=== PATIENT | female | born 1970 | race Caucasian/White ===

== ENCOUNTER 2017-01-18 13:33 | Emergency (ER) | payer OTHER ==
--- NOTE | 2017-01-18 16:08 | DIAGNOSTIC IMAGING REPORT ---
PROCEDURE: CT ABDOMEN/PELVIS W/O CONTRAST INDICATION: HEMATURIA TECHNIQUE: Axial CT images were obtained through the abdomen and pelvis without IV contrast. Coronal and sagittal reformations were created. COMPARISON: None. FINDINGS: Clear lung bases. Normal sized heart. Moderate size hiatal hernia. Punctate, left lower pole intrarenal calcification. No evidence of right intrarenal calcifications. Nondilated ureters without intraureteral calcification. No bladder calcifications. Surgically absent gallbladder. The unenhanced appearance of the liver, adrenal glands, kidneys, pancreas and spleen is normal. Nonenlarged retroperitoneal lymph nodes and bilateral pelvic sidewall lymph nodes visible. The abdominal aorta is normal in its course and caliber. There are no suspicious calcifications, bulky retroperitoneal adenopathy or masses. The stomach, upper bowel loops, and mesentery are normal. Intact anterior abdominal wall. No free fluid or inflammation. Occasional descending colon diverticulosis. The unenhanced appearance of the retroverted uterus, ovaries, urinary bladder, pelvic vessels, and pelvic bowel loops is normal. Normal appendix. No suspicious calcifications, free pelvic fluid or mass. Intact osseous structures. IMPRESSION: 1. No evidence of obstructive uropathy. 2. Punctate, nonobstructing left lower pole intrarenal calcification. No other urinary calcifications. 3. Status post cholecystectomy. 4. Occasional diverticulosis. 5. Discussed with Helene Lieberman in the emergency room. All CT scans at this facility use dose modulation, iterative reconstruction, and/or weight-based dosing when appropriate to reduce radiation dose to as low as reasonably achievable.
--- NOTE | 2017-01-18 16:43 | ED ORDER SUMMARY ---
..... Patient: JORGE CASPER OrderSheet [facility] VisitID: [id number] [address] [place] [address] 46y, F Registration Date/Time: 01/18/2017 ORDER SHEET Weight: 122.4 kg (stated) Allergies: Sulfa Antibiotics GENERAL ORDERS: UA-Culture if indicated Urgent (14:22 01/18/2017 DDean R.N. per protocol) (14:40 PWeiler ER Tech1) CT Abd/Pel wo Cont Urgent (15:07 01/18/2017 HBivens A.R.N.P.) (Ack 15:09 KHoerner) (16:06 DDean R.N.) CBC w Diff Urgent (15:07 01/18/2017 HBivens A.R.N.P.) (Ack 15:09 KHoerner) (15:50 DDean R.N.) CMP Urgent (15:07 01/18/2017 HBivens A.R.N.P.) (Ack 15:09 KHoerner) (15:50 DDean R.N.) Urine Urgent (15:08 01/18/2017 HBivens A.R.N.P.) (15:08 KHoerner) MEDICATION ORDERS: IV FLUIDS: IV NS : initial bolus 1000 mL (1000 mL/hr), then none - (NOW) (15:07 01/18/2017 HBivens A.R.N.P.) (16:26 DDean R.N.) Toradol IV 30 mg (NOW) (15:07 01/18/2017 HBivens A.R.N.P.) (Ack 15:32 DDean R.N.) (15:50 DDean R.N.) IV Saline Lock (15:01/18/2017 HBivens A.R.N.P.) (Ack 15:32 DDean R.N.) (15:50 DDean R.N.) Dilaudid IV 1 mg (HIGH ALERT MEDICATION, NOW) (16:41 01/18/2017 HBivens A.R.N.P.) (Ack 16:45 DDean R.N.) (16:52 DDean R.N.) Zofran IV 4 mg (NOW) (16:41 01/18/2017 Brian A.R.N.P.) (Ack 16:45 DDean R.N.) (16:52 DDean R.N.) ORDER SHEET NOTES: [Electronically signed by Libra Rodriguez R.N. (17:32 01/18/2017)] [Electronically signed by Helene LiebermanR.N.PPolina (21:31 01/18/2017)] [Electronically locked/signed by Libra Rodriguez R.N. (17:32 01/18/2017)]
--- NOTE | 2017-01-18 16:43 | ED CLINICAL REPORT ---
Clinical Report - Physicians/Mid Levels [facility] [address] [place] [address] 01/18/2017 13:34 Patient: JORGE CASPER Time Seen: 14:31; initial patient contact, initial documentation, patient care assumed. Arrived- By private vehicle. Historian- patient. HISTORY OF PRESENT ILLNESS Chief Complaint: BACK PAIN. Modifying factors. Not worsened by anything. Not relieved by anything. It is described as being severe and in the area of the left flank and right flank. The quality is noted to be "pain". No radiation. Onset- about 4 - 5 days ago and it is still present. It was abrupt in onset and has been constant. No bladder dysfunction, bowel dysfunction, sensory loss or motor loss. Patient denies an injury but injury to the head or neck. Similar symptoms previously: None. Recent medical care: Not recently seen/assessed. REVIEW OF SYSTEMS No fever, vaginal discharge, difficulty breathing, chest pain or abdominal pain. No vomiting or diarrhea. She has had difficulty with urination, with pain during urination, along with urgency and frequency. The patient has had urinary frequency. All systems otherwise negative, except as recorded above. PAST HISTORY See nurses notes. PROBLEMS: Dehydration. Pyelonephritis. Kidney disease. Pharyngitis. COPD - Chronic Obstructive Pulmonary Disease. Hypertension. Reflux. Sleep Apnea. Dental Pain. Abscess. Heart Disease. --13:47 Libra Rodriguez RPolinaN. ADDITIONAL SURGERIES: Cholecystectomy. . Laparoscopy. Tubal Ligation. --13:47 Libra Rodriguez R.N. SOCIAL HISTORY Heavy tobacco smoker. History of occasional drug use: marijuana. No alcohol use. No recent travel. Is a local resident. FAMILY HISTORY Negative. ADDITIONAL NOTES The nursing notes have been reviewed with agreement regarding the chief complaint, HPI, ROS, PMH and patient medications and allergies. PHYSICAL EXAM Vital Signs: 01/18/2017 13:40 BP: 145/77. HR: 98. RR: 20. O2 saturation: 100%. Temp: 98 F. Pain level now: 10. Have been reviewed as normal and appear to be correct. Appearance: Alert. No acute distress. Neck: Normal inspection. Neck nontender. Painless ROM. CVS: Heart sounds normal. Pulses normal. Respiratory: No respiratory distress. Breath sounds abnormal. Inspiratory mild bilateral wheezes in the bases. Abdomen: No visible injury. Soft and nontender. Bowel sounds normal. No organomegaly. No mass. Moderately obese. Back: Normal inspection. No tenderness. Painless ROM. Skin: Skin warm and dry. Normal skin color. No rash. Normal skin turgor. Extremities: Extremities exhibit normal ROM. Extremities nontender. Neuro: Oriented X 3. Mood/affect normal. No motor deficit. No sensory deficit. LABS, X-RAYS, AND EKG CT Abdomen: . IMPRESSION: 1. No evidence of obstructive uropathy. 2. Punctate, nonobstructing left lower pole intrarenal calcification. No other urinary calcifications. 3. Status post cholecystectomy. 4. Occasional diverticulosis. 5. Discussed with Helene Lieberman in the emergency room. All CT scans at this facility use dose modulation, iterative reconstruction, and/or weight-based dosing when appropriate to reduce radiation dose to as low as reasonably achievable. Electronically Final signed by:Gin Phelps MD 01/18/2017 4:08:33 PM. The study was interpreted by the radiologist and discussed with the radiologist. Interpretation time: 16:08. Laboratory Tests: UA-Culture if indicated: (KIMO: 01/18/2017 13:40) ( MsgRcvd 01/18/2017 14:59) Final results Test Result Flag Units (Reference) URINE COLOR YELLOW URINE APPEARANCE SL CLOUDY URINE GLUCOSE NEGATIVE (NEGATIVE) URINE BILIRUBIN NEGATIVE (NEGATIVE) URINE KETONE NEGATIVE (NEGATIVE) URINE SPECIFIC GRAVITY <= 1.005 L (1.010-1.030) URINE PH 6.0 (5.0-8.0) URINE PROTEIN NEGATIVE (NEGATIVE) URINE UROBILINOGEN 0.2 EU/dL (0.2-1.0) URINE NITRITE NEGATIVE (NEGATIVE) URINE BLOOD 2+ (NEGATIVE) URINE LEUK ESTERASE NEGATIVE (NEGATIVE) URINE RBC 3-5 rbc/hpf (0-1) URINE WBC 1-3 wbc/hpf (0-1) URINE EPITHELIAL CELLS 10-15 EPI/hpf (0-5) URINE BACTERIA NONE SEEN (NONE SEEN) URINE COMMENT CULT NOT INDICATED URINE CULTURES ARE SET-UP BASED ON THE FOLLOWING CRITERIA:POSITIVE NITRITEPOSITIVE LEUKOCYTE ESTERASEGREATER THAN 10 WHITE BLOOD CELLSMODERATE (2+) OR GREATER BACTERIA Urine: (KIMO: 01/18/2017 13:40) ( MsgRcvd 01/18/2017 15:25) Final results Test Result Flag Units (Reference) URINE NEGATIVE CBC w Diff: (KIMO: 01/18/2017 15:40) ( MsgRcvd 01/18/2017 16:00) Final results Test Result Flag Units (Reference) WHITE BLOOD COUNT 9.3 K/uL (4.5-11.5) RED BLOOD COUNT 4.57 M/uL (4.00-5.20) HEMOGLOBIN 12.4 gm/dL (12.0-16.0) HEMATOCRIT 37.5 % (36.0-46.0) MEAN CELL VOLUME 82 fL (80-100) MEAN CORPUSCULAR HGB 27 pg (26-34) MEAN CORPUSCULAR HGB CONC 33 g/dL (31-37) RED CELL DISTRIBUTION WIDTH 16.1 H % (11.6-14.8) PLATELET COUNT 282 K/uL (150-400) NEUTROPHIL % 83.2 H % (50-75) LYMPH % 11.5 L % (25-40) MONO % 4.0 % (3-14) EOSINOPHIL % 0.9 % (0-4) BASOPHIL % 0.4 % (0-2) CMP: (KIMO: 01/18/2017 15:40) ( MsgRcvd 01/18/2017 16:08) Final results Test Result Flag Units (Reference) GLUCOSE 87 mg/dL (70-110) BUN 12 mg/dL (7-18) CREATININE 1.0 mg/dL (0.6-1.3) Estimated GFR >60 mL/min Estimated GFR- >60 mL/min Note: Persistent reduction over 3 months in eGFR<60 mL/min/1.73 m2 defines CKD. Patients with eGFR values>=60 mL/min/1.73 m2 may also have CKD if evidence ofpersistent proteinuria. Additional information may be foundat www.kidney.org. SODIUM 138 mmol/L (136-145) POTASSIUM 4.0 mmol/L (3.5-5.1) CHLORIDE 101 mmol/L (98-107) CARBON DIOXIDE 32 mmol/L (21-32) CALCIUM 8.8 mg/dL (8.5-10.1) TOTAL PROTEIN 7.5 g/dL (6.4-8.2) ALBUMIN 3.0 L g/dL (3.3-5.0) BILIRUBIN, TOTAL 0.4 mg/dL (0.0-1.0) ALKALINE PHOSPHATASE 105 U/L (46-116) AST (SGOT) 17 U/L (15-37) ALT (SGPT) 26 U/L (12-78) . PROGRESS AND PROCEDURES Patient counseled in person regarding the patient's stable condition, test results and diagnosis. 16:36. Differential Diagnosis: I considered Musculo-skeletal strain, contusion, disk protrusion, sacroiliac joint strain, osteoarthritis, pyelonephritis, abdominal aortic aneurysm and ureterolithiasis as a possible cause of back pain in this patient. This is a partial list of diagnoses considered. Above considerations are based on history, physical exam, reassessment, laboratory data and other information. Differential diagnosis was discussed with patient. Disposition: Discharged home in good and improved condition (16:43). Condition: good and stable. CLINICAL IMPRESSION Ureterolithiasis (single stone) in the left kidney with renal colic. No hydronephrosis, acute pyelonephritis, urinary tract infection or hematuria. INSTRUCTIONS Warnings: GENERAL WARNINGS: Return or contact your physician immediately if your condition worsens or changes unexpectedly, if not improving as expected, or if other problems arise. SPECIFICALLY, return if you develop incontinence of urine (loss of bladder control). fever. Prescription Medications: Zofran 4 mg: Take 1 orally every six hours as needed for nausea/vomiting. Dispense ten (10). No refills. Substitution is permissible. [place] 5 mg / 325 mg tablets: take 1 to 2 orally every 6 hours as needed for pain. Dispense fifteen (15). No refills. Substitution is permissible. Toradol 10 mg tablets: Take 1 tablet orally every 6 hours as needed. Dispense fifteen (15). No refills. Substitution is permissible. Follow-up: Follow up with your doctor in about two days even if well. Call for an appointment. Summary of care provided to patient. Understanding of the discharge instructions verbalized by patient. (Electronically signed by Helene Lieberman A.R.N.P. 01/18/2017 21:31)
--- NOTE | 2017-01-18 16:43 | ED NURSING NOTES ---
Clinical Report - Nurses [facility] [address] [place] [address] 01/18/2017 13:34 Patient: JORGE CASPER TRIAGE Triage time 1340. Acuity: LEVEL 3. Chief Complaint: PAINFUL URINATION, URGENCY and FREQUENCY and (pt states she has kidney disease, c/o 4-5 days of bilateral flank/back pain, with decreased urinary output). --13:50 Libra Rodriguez R.N. 13:40 01/18/17. BP: 145/77. HR: 98. RR: 20. O2 saturation: 100%. Temp: 98 F. Pain level now: 02/12. --13:50 Libra Rodriguez R.N. Weight: 122.4 kg stated. Height/Length: 71 inches Per Patient. BMI: 37.7. --13:48 Libra Rodriguez R.N. Medications Albuterol Sulfate HFA Inhalation, as needed. Furosemide Oral 40 mg, daily. Losartan Potassium Oral 100 mg, daily. Verapamil HCl Oral SR 180 mg, daily. --13:48 Libra Rodriguez R.N. Allergies Sulfa Antibiotics.(rash) --13:48 Libra Rodriguez R.N. History Arrived by private vehicle. Historian: patient. Accompanied by son. Primary physician ([facility] x [facility] Onset. (4-5 days). She has had fever and flank pain. SOCIAL HX: Heavy tobacco smoker (cigarette)- 1 pack per day. History of drug use: marijuana. No alcohol use. --13:50 Libra Rodriguez R.N. PROBLEMS: Dehydration. Pyelonephritis. Kidney disease. Pharyngitis. COPD - Chronic Obstructive Pulmonary Disease. Hypertension. Reflux. Sleep Apnea. Dental Pain. Abscess. Heart Disease. --13:47 Libra Rodriguez R.N. ADDITIONAL SURGERIES: Cholecystectomy. . Laparoscopy. Tubal Ligation. --13:47 Libra Rodriguez R.N. Interventions ID band on patient. To treatment room. --13:50 Libra Rodriguez R.N. PHYSICAL ASSESSMENT 13:40. Ambulatory to room. Patient gowned. GENERAL / NEURO / PSYCH: Alert. Oriented X 4. Appears in pain. RESPIRATORY: Respirations not labored. CVS: Capillary refill less than 2 seconds. GI / : Abdomen soft. Pain with urination. She has had frequency of urination. Urgency of urination. SKIN: Skin is warm and dry. --13:51 Libra Rodriguez R.N. NURSING PROGRESS NOTES 13:40. Patient gowned. Head of bed elevated. Reassurance given. Patient identifiers checked. Call light placed in reach. Side rails up. Bed placed in lowest position. Patient ready for evaluation- chart flagged. --13:50 Libra Rodriguez R.N. 14:00. Patient ID band checked for patient name and birthdate: patient confirmed. Clean catch urine collected with return of yellow-colored clear urine; sample sent to lab for urinalysis and culture. Specimen labeled in the presence of the patient. --14:22 Libra Rodriguez R.N. 15:40 01/18/2017 Site #1 started via IV in the right antecubital space with an 20g angiocath, with aseptic technique and good blood return; one attempt. Blood drawn: rainbow set. Labeled in the presence of the patient and sent to the lab. Saline lock flushed with 10 mL saline. --15:50 Libra Rodriguez R.N. 15:45 01/18/2017 Toradol IVP 30 mg given over 1 minute(s) via site #1. IV patency established. IV site checked: no pain, redness, or swelling. IV flushed thoroughly pre- and post-medication administration. IVP given by RN. --15:50 Libra Rodriguez R.N. 14:45. ( Pt resting quietly, son at bedside). --15:51 Libra Rodriguez R.N. 15:40. ( IV placed blood draw, meds given). --15:52 Libra Rodriguez R.N. 15:50. Patient walked to MA with tech. --15:52 Libra Rodriguez R.N. 15:58 01/18/17. Patient returned from radiology by wheelchair with tech. --15:58 Libra Rodriguez R.N. 16:00 01/18/2017 Started bag #1 1000 mL IV Fluids IV NS (Saline); at 1000 mL/hr over 1 hour(s) via site #1 via IV pump. IV patency established. IV site checked: no pain, redness, or swelling. IV flushed thoroughly pre- and post-medication administration. --16:26 Libra Rodriguez R.N. 16:30 01/18/17. BP: 152/102. HR: 97. RR: 18. O2 saturation: 96%. Temp: deferred. Pain level now: 02/12. Additional comments: tordol did not help pain. --16:34 Libra Rodriguez R.N. 16:48 01/18/2017 Zofran (Ondansetron HCl) IVP 4 mg given over 1 minute(s) via site #1. IV patency established. IV site checked: no pain, redness, or swelling. IV flushed thoroughly pre- and post-medication administration. IVP given by RN. --16:52 Libra Rodriguez R.N. 16:49 01/18/2017 Dilaudid (HYDROmorphone HCl PF) IVP 1 mg given over 1 minute(s) via site #1. IV patency established. IV site checked: no pain, redness, or swelling. IV flushed thoroughly pre- and post-medication administration. IVP given by RN. --16:52 Libra Rodriguez R.N. 16:53 01/18/17. BP: 196/82. HR: 87. RR: 18. O2 saturation: 95%. Temp: deferred. Pain level now: 09/15. --16:53 Libra Rodriguez R.N. 16:50 01/18/2017 Site #1 removed upon discharge. Bandaid applied. --17:29 Libra Rodriguez R.N. 16:50 01/18/2017 IV Fluids IV NS Discontinued: bag #1 STOPPED upon discharge. Total amount infused: 850 mL. IV patency established. IV site checked: no pain, redness, or swelling. IV flushed thoroughly. --17:30 Libra Rodriguez R.N. 16:50 01/18/2017 IV Saline Lock Drip IV Discontinued: upon discharge. IV patency established. IV site checked: no pain, redness, or swelling. IV flushed thoroughly. --17:31 Libra Rodriguez R.N. 16:53 01/18/17. Reassessment after medication administered. She is calm and resting quietly. Overall patient status is improved- she states feels better. --16:53 Libra Rodriguez R.N. DISPOSITION / DISCHARGE 17:00. Condition at departure: improved and stable. No learning barriers present. Discharge instructions provided and reviewed with the family. Reviewed medication(s) (tordol, ultram, zofran). Family verbalized understanding. Written instructions provided in B[place]. The patient was discharged home and accompanied by family. She left the Emergency Department in a wheelchair and via private vehicle. Driving (son). --17:29 Libra Rodriguez R.N. 16:55 01/18/17. BP: 175/87. HR: 88. RR: 18. O2 saturation: 96% on room air. Temp: deferred. Pain level now: 09/15. --17:29 Libra Rodriguez R.N. Locked/Released at 01/18/2017 17:32 by Libra Rodriguez R.N.
--- NOTE | 2017-01-18 16:43 | ED ORDER SUMMARY ---
..... Patient: JORGE CASPER OrderSheet [facility] VisitID: [id number] [address] [place] [address] 46y, F Registration Date/Time: 01/18/2017 ORDER SHEET Weight: 122.4 kg (stated) Allergies: Sulfa Antibiotics GENERAL ORDERS: UA-Culture if indicated Urgent (14:22 01/18/2017 DDean R.N. per protocol) (14:40 PWeiler ER Tech1) CT Abd/Pel wo Cont Urgent (15:07 01/18/2017 HBivens A.R.N.P.) (Ack 15:09 KHoerner) (16:06 DDean R.N.) CBC w Diff Urgent (15:07 01/18/2017 HBivens A.R.N.P.) (Ack 15:09 KHoerner) (15:50 DDean R.N.) CMP Urgent (15:07 01/18/2017 HBivens A.R.N.P.) (Ack 15:09 KHoerner) (15:50 DDean R.N.) Urine Urgent (15:08 01/18/2017 HBivens A.R.N.P.) (15:08 KHoerner) MEDICATION ORDERS: IV FLUIDS: IV NS : initial bolus 1000 mL (1000 mL/hr), then none - (NOW) (15:07 01/18/2017 HBivens A.R.N.P.) (16:26 DDean R.N.) Toradol IV 30 mg (NOW) (15:07 01/18/2017 HBivens A.R.N.P.) (Ack 15:32 DDean R.N.) (15:50 DDean R.N.) IV Saline Lock (15:01/18/2017 HBivens A.R.N.P.) (Ack 15:32 DDean R.N.) (15:50 DDean R.N.) Dilaudid IV 1 mg (HIGH ALERT MEDICATION, NOW) (16:41 01/18/2017 HBivens A.R.N.P.) (Ack 16:45 DDean R.N.) (16:52 DDean R.N.) Zofran IV 4 mg (NOW) (16:41 01/18/2017 Brian A.R.N.P.) (Ack 16:45 DDean R.N.) (16:52 DDean R.N.) ORDER SHEET NOTES: [Electronically signed by Libra Rodriguez R.N. (17:32 01/18/2017)] [Electronically signed by Helene LiebermanR.N.PPolina (21:31 01/18/2017)] [Electronically locked/signed by Libra Rodriguez R.N. (17:32 01/18/2017)]
--- NOTE | 2017-01-18 21:31 | ED MED RECONCILIATION SUMMARY ---
Patient: JORGE CASPER Medication Reconciliation Report [facility] VisitID: [id number] [address] [place] [address] 46y, F Registration Date/Time: 01/18/2017 Weight: 122.4 kg Height/Length: 71 in. BMI: 37.7 ALLERGIES: Sulfa Antibiotics The patient's Home Medications are listed below: THE FOLLOWING MEDICATIONS NEED TO BE RECONCILED: Albuterol Sulfate HFA Inhalation Furosemide Oral 40 mg, daily Losartan Potassium Oral 100 mg, daily Verapamil HCl Oral SR 180 mg, daily The source(s) of the original Home Medication information: Not obtained. The following Medications were given to the patient in the Emergency Department: Toradol [IVP] IVP 30 mg, administered: 01/18/2017 3:45:00 PM IV NS IV Fluids bolus 0, then 1000 mL/hr, administered: 01/18/2017 4:00:00 PM Zofran [IVP] IVP 4 mg, administered: 01/18/2017 4:48:00 PM Dilaudid [IVP] IVP 1 mg, administered: 01/18/2017 4:49:00 PM The following Medications were prescribed to the patient: Zofran 4 mg: Take 1 orally every six hours as needed for nausea/vomiting. Dispense ten (10). No refills. Substitution is permissible. -- Helene Lieberman A.R.N.P. [place] 5 mg / 325 mg tablets: take 1 to 2 orally every 6 hours as needed for pain. Dispense fifteen (15). No refills. Substitution is permissible. -- Helene Lieberman A.R.N.P. Toradol 10 mg tablets: Take 1 tablet orally every 6 hours as needed. Dispense fifteen (15). No refills. Substitution is permissible. -- Helene Lieberman A.R.N.P.
--- NOTE | 2017-01-18 21:31 | ED MAR SUMMARY ---
..... Medication Administration Record [facility] [address] [place] [address] Patient: JORGE CASPER Visit ID: [id number] 46y, F Weight: 122.4 kg Height/Length: 71 in BMI: 37.7 ALLERGIES: Sulfa Antibiotics Given 15:45 01/18/2017 Libra Rodriguez R.N. Medication Administered: TORADOL [IVP], Dose: 30 mg IVP over 1 minute(s), Site: #1 right AC. Medication Ordered: Toradol IV 30 mg (NOW). Start 16:00 01/18/2017 Libra Rodriguez R.N., Stop 16:50 01/18/2017 Libra Rodriguez R.N. Medication Administered: IV NS (SALINE), Dose: IV Fluids over 1 hour(s), Rate: 1000 mL/hr, Dispensed: 1000 mL bag, Site: #1 right AC. Medication Ordered: IV NS : initial bolus 1000 mL (1000 mL/hr), then none - (NOW). Given 16:48 01/18/2017 Libra Rodriguez R.N. Medication Administered: ZOFRAN [IVP] (ONDANSETRON HCL), Dose: 4 mg IVP over 1 minute(s), Site: #1 right AC. Medication Ordered: Zofran IV 4 mg (NOW). Given 16:49 01/18/2017 Libra Rodriguez R.N. Medication Administered: DILAUDID [IVP] (HYDROMORPHONE HCL PF), Dose: 1 mg IVP over 1 minute(s), Site: #1 right AC. Medication Ordered: Dilaudid IV 1 mg (HIGH ALERT MEDICATION, NOW).
--- NOTE | 2017-01-18 21:31 | ED MED RECONCILIATION SUMMARY ---
Patient: JORGE CASPER Medication Reconciliation Report [facility] VisitID: [id number] [address] [place] [address] 46y, F Registration Date/Time: 01/18/2017 Weight: 122.4 kg Height/Length: 71 in. BMI: 37.7 ALLERGIES: Sulfa Antibiotics The patient's Home Medications are listed below: THE FOLLOWING MEDICATIONS NEED TO BE RECONCILED: Albuterol Sulfate HFA Inhalation Furosemide Oral 40 mg, daily Losartan Potassium Oral 100 mg, daily Verapamil HCl Oral SR 180 mg, daily The source(s) of the original Home Medication information: Not obtained. The following Medications were given to the patient in the Emergency Department: Toradol [IVP] IVP 30 mg, administered: 01/18/2017 3:45:00 PM IV NS IV Fluids bolus 0, then 1000 mL/hr, administered: 01/18/2017 4:00:00 PM Zofran [IVP] IVP 4 mg, administered: 01/18/2017 4:48:00 PM Dilaudid [IVP] IVP 1 mg, administered: 01/18/2017 4:49:00 PM The following Medications were prescribed to the patient: Zofran 4 mg: Take 1 orally every six hours as needed for nausea/vomiting. Dispense ten (10). No refills. Substitution is permissible. -- Helene Lieberman A.R.N.P. [place] 5 mg / 325 mg tablets: take 1 to 2 orally every 6 hours as needed for pain. Dispense fifteen (15). No refills. Substitution is permissible. -- Helene Lieberman A.R.N.P. Toradol 10 mg tablets: Take 1 tablet orally every 6 hours as needed. Dispense fifteen (15). No refills. Substitution is permissible. -- Helene Lieberman A.R.N.P.
--- NOTE | 2017-01-18 21:31 | ED MAR SUMMARY ---
..... Medication Administration Record [facility] [address] [place] [address] Patient: JORGE CASPER Visit ID: [id number] 46y, F Weight: 122.4 kg Height/Length: 71 in BMI: 37.7 ALLERGIES: Sulfa Antibiotics Given 15:45 01/18/2017 Libra Rodriguez R.N. Medication Administered: TORADOL [IVP], Dose: 30 mg IVP over 1 minute(s), Site: #1 right AC. Medication Ordered: Toradol IV 30 mg (NOW). Start 16:00 01/18/2017 Libra Rodriguez R.N., Stop 16:50 01/18/2017 Libra Rodriguez R.N. Medication Administered: IV NS (SALINE), Dose: IV Fluids over 1 hour(s), Rate: 1000 mL/hr, Dispensed: 1000 mL bag, Site: #1 right AC. Medication Ordered: IV NS : initial bolus 1000 mL (1000 mL/hr), then none - (NOW). Given 16:48 01/18/2017 Libra Rodriguez R.N. Medication Administered: ZOFRAN [IVP] (ONDANSETRON HCL), Dose: 4 mg IVP over 1 minute(s), Site: #1 right AC. Medication Ordered: Zofran IV 4 mg (NOW). Given 16:49 01/18/2017 Libra Rodriguez R.N. Medication Administered: DILAUDID [IVP] (HYDROMORPHONE HCL PF), Dose: 1 mg IVP over 1 minute(s), Site: #1 right AC. Medication Ordered: Dilaudid IV 1 mg (HIGH ALERT MEDICATION, NOW).
--- NOTE | 2017-01-18 21:31 | ED DISCHARGE INSTRUCTIONS ---
Patient: JORGE CASPER General Instructions [facility] VisitID: [id number] [place] [address] 46y, F Registration Date/Time: 01/18/2017 Ureterolithiasis (single stone) in the left kidney with renal colic. No hydronephrosis, acute pyelonephritis, urinary tract infection or hematuria. INSTRUCTIONS Warnings: GENERAL WARNINGS: Return or contact your physician immediately if your condition worsens or changes unexpectedly, if not improving as expected, or if other problems arise. SPECIFICALLY, return if you develop incontinence of urine (loss of bladder control). fever. Prescription Medications: Zofran 4 mg: Take 1 orally every six hours as needed for nausea/vomiting. Dispense ten (10). No refills. Substitution is permissible. [place] 5 mg / 325 mg tablets: take 1 to 2 orally every 6 hours as needed for pain. Dispense fifteen (15). No refills. Substitution is permissible. Toradol 10 mg tablets: Take 1 tablet orally every 6 hours as needed. Dispense fifteen (15). No refills. Substitution is permissible. Follow-up: Follow up with your doctor in about two days even if well. Call for an appointment. Summary of care provided to patient. Understanding of the discharge instructions verbalized by patient. ADDITIONAL INFORMATION Kidney Stone (W/ Colic) The sharp cramping pain and nausea/vomiting that you have is due to a small stone which has formed in the kidney and is now passing down a narrow tube (ureter) on its way to your bladder. Once it reaches your bladder, the pain will stop. The stone may pass in your urine stream in one piece. [The size may be 1/16" to 1/4" (1-6mm)]. Or, the stone may also break up into xin fragments which you may not even notice. Once you have had a kidney stone, you are at risk for developing another one in the future. Home Care: Drink plenty of fluids (at least 8 to 10 glasses of water a day). Most stones will pass on their own, but may take from a few hours to a few days. Sometimes the stone is too large to pass by itself and special methods will have to be used to remove the stone. Each time you urinate, do so in a jar. Pour the urine from the jar through the strainer and into the toilet. Continue doing this until 24 hours after your pain stops. By then, if there was a kidney stone, it should pass from your bladder. Some stones dissolve into sand-like particles and pass right through the strainer. In that case, you wont ever see a stone. Save any stone that you find in the strainer and bring it to your doctor for analysis. It may be possible to prevent certain types of stones from forming. Therefore, it is important to know what kind of stone you have. Try to stay as active as possible since this will help the stone pass. Do not stay in bed unless your pain prevents you from getting up. You may notice a red, pink or brown color to your urine. This is normal while passing a kidney stone. Follow Up with your doctor or return to this facility if the pain lasts more than 48 hours. Get Prompt Medical Attention if any of the following occur: Pain that is not controlled by the medicine given Repeated vomiting or unable to keep down fluids Weakness, dizziness or fainting Fever of 100.4F (38C) or higher, or as directed by your healthcare provider Passage of solid red or brown urine (can't see through it) or urine with lots of blood clots Unable to pass urine for 8 hours and increasing bladder pressure Ondansetron Oral disintegrating tablet What is this medicine? ONDANSETRON (on EFRA se rabia) is used to treat nausea and vomiting caused by chemotherapy. It is also used to prevent or treat nausea and vomiting after surgery. How should I use this medicine? These tablets are made to dissolve in the mouth. Do not try to push the tablet through the foil backing. With dry hands, peel away the foil backing and gently remove the tablet. Place the tablet in the mouth and allow it to dissolve, then swallow. While you may take these tablets with water, it is not necessary to do so. Talk to your tobacco feeder catcher regarding the use of this medicine in children. Special care may be needed. What side effects may I notice from receiving this medicine? Side effects that you should report to your doctor or health animal care assistant as soon as possible: allergic reactions like skin rash, itching or hives, swelling of the face, lips, or tongue breathing problems dizziness fast or irregular heartbeat feeling faint or lightheaded, falls fever and chills swelling of the hands and feet tightness in the chest Side effects that usually do not require medical attention (report to your doctor or health animal care assistant if they continue or are bothersome): constipation or diarrhea headache What may interact with this medicine? Do not take this medicine with any of the following medications: -apomorphine -cisapride -dofetilide -dronedarone -pimozide -thioridazine -ziprasidone This medicine may also interact with the following medications: -carbamazepine -phenytoin -rifampicin -tramadol -other medicines that prolong the QT interval (cause an abnormal heart rhythm) What if I miss a dose? If you miss a dose, take it as soon as you can. If it is almost time for your next dose, take only that dose. Do not take double or extra doses. Where should I keep my medicine? Keep out of the reach of children. Store between 2 and 30 degrees C (36 and 86 degrees F). Throw away any unused medicine after the expiration date. What should I tell my health care provider before I take this medicine? They need to know if you have any of these conditions: heart disease history of irregular heartbeat liver disease low levels of magnesium or potassium in the blood an unusual or allergic reaction to ondansetron, granisetron, other medicines, foods, dyes, or preservatives or trying to get breast-feeding What should I watch for while using this medicine? Check with your doctor or health animal care assistant as soon as you can if you have any sign of an allergic reaction. Hydrocodone Bitartrate, Acetaminophen Oral tablet What is this medicine? ACETAMINOPHEN; HYDROCODONE (a set a YARELIS rashaad fen; tamiko droe KOE done) is a pain reliever. It is used to treat mild to moderate pain. How should I use this medicine? Take this medicine by mouth. Swallow it with a full glass of water. Follow the directions on the prescription label. If the medicine upsets your stomach, take the medicine with food or milk. Do not take more than you are told to take. Talk to your tobacco feeder catcher regarding the use of this medicine in children. This medicine is not approved for use in children. What side effects may I notice from receiving this medicine? Side effects that you should report to your doctor or health animal care assistant as soon as possible: allergic reactions like skin rash, itching or hives, swelling of the face, lips, or tongue breathing problems confusion feeling faint or lightheaded, falls stomach pain yellowing of the eyes or skin Side effects that usually do not require medical attention (report to your doctor or health animal care assistant if they continue or are bothersome): nausea, vomiting stomach upset What may interact with this medicine? alcohol antihistamines isoniazid medicines for depression, anxiety, or psychotic disturbances medicines for sleep muscle relaxants naltrexone narcotic medicines (opiates) for pain phenobarbital ritonavir tramadol What if I miss a dose? If you miss a dose, take it as soon as you can. If it is almost time for your next dose, take only that dose. Do not take double or extra doses. Where should I keep my medicine? Keep out of the reach of children. This medicine can be abused. Keep your medicine in a safe place to protect it from theft. Do not share this medicine with anyone. Selling or giving away this medicine is dangerous and against the law. Store at room temperature between 15 and 30 degrees C (59 and 86 degrees F). Protect from light. Keep container tightly closed. Throw away any unused medicine after the expiration date. Discard unused medicine and used packaging carefully. Pets and children can be harmed if they find used or lost packages. What should I tell my health care provider before I take this medicine? They need to know if you have any of these conditions: brain tumor Crohn's disease, inflammatory bowel disease, or ulcerative colitis drink more than 3 alcohol-containing drinks per day drug abuse or addiction head injury heart or circulation problems kidney disease or problems going to the bathroom liver disease lung disease, asthma, or breathing problems an unusual or allergic reaction to acetaminophen, hydrocodone, other opioid analgesics, other medicines, foods, dyes, or preservatives or trying to get breast-feeding What should I watch for while using this medicine? Tell your doctor or health animal care assistant if your pain does not go away, if it gets worse, or if you have new or a different type of pain. You may develop tolerance to the medicine. Tolerance means that you will need a higher dose of the medicine for pain relief. Tolerance is normal and is expected if you take the medicine for a long time. Do not suddenly stop taking your medicine because you may develop a severe reaction. Your body becomes used to the medicine. This does NOT mean you are addicted. Addiction is a behavior related to getting and using a drug for a non-medical reason. If you have pain, you have a medical reason to take pain medicine. Your doctor will tell you how much medicine to take. If your doctor wants you to stop the medicine, the dose will be slowly lowered over time to avoid any side effects. You may get drowsy or dizzy when you first start taking the medicine or change doses. Do not drive, use machinery, or do anything that may be dangerous until you know how the medicine affects you. Stand or sit up slowly. There are different types of narcotic medicines (opiates) for pain. If you take more than one type at the same time, you may have more side effects. Give your health care provider a list of all medicines you use. Your doctor will tell you how much medicine to take. Do not take more medicine than directed. Call emergency for help if you have problems breathing. The medicine will cause constipation. Try to have a bowel movement at least every 2 to 3 days. If you do not have a bowel movement for 3 days, call your doctor or health animal care assistant. Too much acetaminophen can be very dangerous. Do not take Tylenol (acetaminophen) or medicines that contain acetaminophen with this medicine. Many non-prescription medicines contain acetaminophen. Always read the labels carefully. Ketorolac Tromethamine Oral tablet What is this medicine? KETOROLAC (shayan toe ROLE ak) is a non-steroidal anti-inflammatory drug (NSAID). It is used for a short while to treat moderate to severe pain, including pain after surgery. It should not be used for more than 5 days. How should I use this medicine? Take this medicine by mouth with a full glass of water. Follow the directions on the prescription label. Take your medicine at regular intervals. Do not take your medicine more often than directed. Do not take more than the recommended dose. A special MedGuide will be given to you by the pharmacist with each prescription and refill. Be sure to read this information carefully each time. Talk to your tobacco feeder catcher regarding the use of this medicine in children. While this drug may be prescribed for children as young as 16 years of age for selected conditions, precautions do apply. Patients over 65 years old may have a stronger reaction and need a smaller dose. What side effects may I notice from receiving this medicine? Side effects that you should report to your doctor or health animal care assistant as soon as possible: allergic reactions like skin rash, itching or hives, swelling of the face, lips, or tongue black or tarry stools breathing problems changes in vision chest pain high blood pressure nausea or vomiting redness, blistering, peeling or loosening of the skin, including inside the mouth severe abdominal pain slurred speech or weakness on one side of the body unexplained weight gain or swelling unusual bleeding or bruising unusually weak or tired yellowing of eyes or skin Side effects that usually do not require medical attention (report to your doctor or health animal care assistant if they continue or are bothersome): diarrhea dizziness headache heartburn What may interact with this medicine? Do not take this medicine with any of the following medications: aspirin and aspirin-like medicines cidofovir methotrexate NSAIDs, medicines for pain and inflammation, like ibuprofen or naproxen pemetrexed probenecid This medicine may also interact with the following medications: alcohol alendronate alprazolam carbamazepine cyclosporine diuretics flavocoxid fluoxetine ginkgo lithium medicines for high blood pressure like enalapril medicines that affect platelets like pentoxifylline medicines that treat or prevent blood clots like heparin, warfarin muscle relaxants phenytoin steroid medicines like prednisone or cortisone thiothixene What if I miss a dose? If you miss a dose, take it as soon as you can. If it is almost time for your next dose, take only that dose. Do not take double or extra doses. Where should I keep my medicine? Keep out of the reach of children. Store at room temperature between 20 and 25 degrees C (68 and 77 degrees F). Throw away any unused medicine after the expiration date. What should I tell my health care provider before I take this medicine? They need to know if you have any of these conditions: asthma bleeding problems like hemophilia cigarette smoker drink more than 3 alcohol containing drinks a day heart disease or circulation problems such as heart failure or leg edema (fluid retention) high blood pressure kidney disease liver disease stomach bleeding or ulcers an unusual or allergic reaction to ketorolac, aspirin, other NSAIDs, other medicines, foods, dyes, or preservatives or trying to get breast-feeding What should I watch for while using this medicine? Tell your doctor or health animal care assistant if your pain does not get better. Talk to your doctor before taking another medicine for pain. Do not treat yourself. This medicine does not prevent heart attack or stroke. In fact, this medicine may increase the chance of a heart attack or stroke. The chance may increase with longer use of this medicine and in people who have heart disease. If you take aspirin to prevent heart attack or stroke, talk with your doctor or health animal care assistant. Do not take medicines such as ibuprofen and naproxen with this medicine. Side effects such as stomach upset, nausea, or ulcers may be more likely to occur. Many medicines available without a prescription should not be taken with this medicine. This medicine can cause ulcers and bleeding in the stomach and intestines at any time during treatment. Do not smoke cigarettes or drink alcohol. These increase irritation to your stomach and can make it more susceptible to damage from this medicine. Ulcers and bleeding can happen without warning symptoms and can cause . You may get drowsy or dizzy. Do not drive, use machinery, or do anything that needs mental alertness until you know how this medicine affects you. Do not stand or sit up quickly, especially if you are an older patient. This reduces the risk of dizzy or fainting spells. This medicine can cause you to bleed more easily. Try to avoid damage to your teeth and gums when you brush or floss your teeth. You have been given the following additional information: Kidney Stone W/ Colic Ondansetron Oral disintegrating tablet Hydrocodone Bitartrate, Acetaminophen Oral tablet Ketorolac Tromethamine Oral tablet (Electronically signed by Helene Lieberman A.R.N.P. 01/18/2017 21:31)
== END 2017-01-18 17:00 | disposition home or self-care (01) ==
LOC: ED SRH 13:33
DX: N20.2 Calculus of kidney with calculus of ureter (principal); J44.9 Chronic obstructive pulmonary disease, unspecified; I10 Essential (primary) hypertension; K21.9 Gastro-esophageal reflux disease without esophagitis; Z79.899 Other long term (current) drug therapy; F17.210 Nicotine dependence, cigarettes, uncomplicated; Z88.2 Allergy status to sulfonamides
CPT/HCPCS: 90004; 90100; 93070; 95059